=== PATIENT | male | born 1960 | race Caucasian/White ===

== ENCOUNTER → 2023-11-07 | Day surgery (SDC) | payer OTHER ==
[~2023-11-07] MED LIST: AMLODIPINE BESY10 MG PO; AMOXICILLIN500 MG PO; DEXMEDETOMIDINE HCL 200 MCG/2 ML VIAL ONE; FLOMAX0.4 MG PO; LIDOCAINE HCL 2% LOCAL INJ 5 ML SDV VIAL INJ ONE; MIDAZOLAM HCL 2 MG/2 ML VIAL ONE; OMEPRAZOLE40 MG PO; PROPOFOL IV EMULSION 10 MG/ML 50 ML VIAL IV ONE
[2023-11-07 10:59] VITALS: TEMP 97.6
[2023-11-07 11:30] VITALS: BP 113/70; PULSE 62; RESP 16; O2SAT 97
== END | disposition home or self-care (01) ==
LOC: OR 08:16
PROVIDERS: ATTEND Internal Medicine Gastroenterology
DX: Z12.11 Encounter for screening for malignant neoplasm of colon (principal); K63.5 Polyp of colon; K57.30 Diverticulosis of large intestine without perforation or abscess without bleeding; K64.8 Other hemorrhoids; I10 Essential (primary) hypertension; K21.9 Gastro-esophageal reflux disease without esophagitis; N52.9 Male erectile dysfunction, unspecified; Z01.810 Encounter for preprocedural cardiovascular examination; Z79.899 Other long term (current) drug therapy
CPT/HCPCS: 45385; 93005; J2001; J2250; J2704; 45378

== ENCOUNTER → 2023-12-19 | Day surgery (SDC) | payer OTHER ==
[~2023-12-19] MED LIST changes: +BUPIVACAINE HCL 0.5% INJ 30 ML VIAL INJ ONE; +CENTRUM ADULTS1 EACH PO; -DEXMEDETOMIDINE HCL 200 MCG/2 ML VIAL ONE; +FENTANYL CITRATE/PF 100MCG/2 ML INJ ONE; +KETOROLAC TROMETHAMINE 30 MG/ML VIAL ONE; -MIDAZOLAM HCL 2 MG/2 ML VIAL ONE; +ONDANSETRON HCL INJ 2MG/ML 2ML 2 MG/ML VIAL ONE; +PROPOFOL IV EMULSION 10 MG/ML 20 ML VIAL ONE; -PROPOFOL IV EMULSION 10 MG/ML 50 ML VIAL IV ONE; +SAW PALMETTO450 MG PO; +SEVOFLURANE INHAL SOLN 250 ML PEN BTL ONE
[2023-12-19] MEDS: LACTATED RINGER'S 1,000 ML ONE (06:06)
[2023-12-19 07:23] VITALS: TEMP 97
[2023-12-19 08:15] VITALS: BP 125/73; PULSE 58; RESP 16; O2SAT 98
== END | disposition home or self-care (01) ==
LOC: OR 06:04
PROVIDERS: ATTEND Specialist
DX: M65.352 Trigger finger, left little finger (principal); I10 Essential (primary) hypertension; K21.9 Gastro-esophageal reflux disease without esophagitis; Z71.3 Dietary counseling and surveillance; Z68.25 Body mass index [BMI] 25.0-25.9, adult; Z71.82 Exercise counseling; Z79.899 Other long term (current) drug therapy
CPT/HCPCS: 26055; J0690; J1885; J2003; J2405; J2704; J3010; J7121